=== PATIENT | female | born 1995 | race Caucasian/White ===

== ENCOUNTER 2020-11-24 18:13 | Emergency (ER) | payer OTHER ==
[~2020-11-24] VITALS: Ht 160 cm; Wt 90.7 kg
[2020-11-24 21:31] LABS: URINE BILIRUBIN NEGATIVE (Negative); URINE BLOOD NEGATIVE (Negative); URINE CLARITY CLEAR; URINE COLOR YELLOW; URINE GLUCOSE-RANDOM NEGATIVE (Negative); URINE KETONES NEGATIVE (Negative); URINE LEUKOCYTES-REFLEX NEGATIVE (Negative); URINE NITRITE-REFLEX NEGATIVE (Negative); URINE PROTEIN NEGATIVE (Negative); URINE UROBILINOGEN 0.2 E.U./dl (0.2-1.0)
[2020-11-24] MEDS ORDERED: KEPPRA 500 MG500 MG PO (21:52)
[2020-11-24 22:21] VITALS: BP 142/81
== END 2020-11-24 22:21 | disposition home or self-care (01) ==
LOC: M.ERS 18:13
PROVIDERS: Personal Emergency Response Attendant
DX: R56.9 Unspecified convulsions (principal)